=== PATIENT | female | born 1970 | race Caucasian/White ===

== ENCOUNTER 2020-08-02 01:12 | Inpatient (IN) | payer SELFPAY ==
[2020-08-02] VITALS (15 sets, daily range): BP systolic 111–181; BP diastolic 66–129; PULSE 78–103; RESP 17–18; TEMP 36.3–36.9; O2SAT 93–100; BMI 22.6
[2020-08-02 01:42] LABS: Basophils # 0.1 10^3/uL (0.0-0.1); Basophils % 1.1 %; Eosinophils # 0.2 10^3/uL (0.0-0.8); Eosinophils % 2.2 %; Hematocrit 44.6 % (37.0-47.0); Hemoglobin 14.8 g/dL (11.5-15.3); Lymphocytes # 4.2 10^3/uL (0.8-4.8); Lymphocytes % 47.1 %; Mean Corpuscular HGB Conc 33.2 g/dL (30.0-36.0); Mean Corpuscular Hemoglobin 34.7 pg (28.0-34.0); Mean Corpuscular Volume 104.4 fL (81-99); Mean Platelet Volume 9.7 fL (7.4-10.4); Monocytes % 10.7 %; Neutrophils # 3.42 10^3/uL (1.8-7.7); Neutrophils % 38.5 %; Nucleated Red Blood Cells % 0 %; Platelet Count 294 10^3/cmm (130-400); Red Blood Count 4.27 10^6/uL (4.1-5.3); White Blood Count 8.9 10^3/uL (4.0-10.0)
[2020-08-02] MEDS: sodium chloride 0.9% 1,000 ML 999 ML IV (01:47)
[2020-08-02] MEDS: haloperidol inj 5 mg/mL INJ 1 mL 2 MG IVP (01:49)
[2020-08-02 01:50] LABS: INR 0.94 (0.8-1.2)
[2020-08-02 02:09] LABS: Alanine Aminotransferase 68 U/L (0-33); Albumin Level 4.6 g/dL (3.5-5.2); Alkaline Phosphatase 133 IU/L (35-105); Aspartate Amino Transferase 121 U/L (0-32); Blood Urea Nitrogen 9 mg/dL (6-20); Carbon Dioxide 27 mmol/L (22-29); Chloride 108 mmol/L (98-107); Globulin 3.3 g/dL (1.3-4.6); Glomerular Filtration Rate 106.7 mL/min (90-130); Glucose 96 mg/dL (65-115); Osmolality Calculated 301 mOsm/kg (285-295); Sodium 146 mmol/L (136-145); Thyroid Stimulating Hormone 0.68 uIU/mL (0.27-4.20); Total Bilirubin 0.2 mg/dL (0.15-1.2); Total Protein 7.9 g/dL (6.6-8.7)
[2020-08-02 02:10] LABS: Acetaminophen < 5.0 ug/mL (10-30); Salicylate < 0.3 mg/dL (3-10)
[2020-08-02 02:12] LABS: Alcohol Level 410 mg/dL (0-10); Anion Gap 15.2 (5-19); Potassium 4.2 mmol/L (3.5-5.1)
--- NOTE | 2020-08-02 02:22 | W.ED.PSYCH ---
Documented by User: Harriett Caldwell MD 08/03/20 11:02 HPI - Psych General: Chief Complaint: Psychiatric Symptoms Stated Complaint: MHE Time Seen by Provider: 08/02/20 01:17 History of Present Illness: HPI Narrative: This patient is a 50-year-old female who comes in tonight very upset and crying. Family brought her to the ER and convinced her to stay and be seen. Apparently they are concerned about her alcohol use. The patient admits that she does drink a lot on a daily basis and has been doing so for many years. Today she is quite intoxicated. She said she is crying because she is sad. Apparently her children are in [facility] and she wants to go back and be with them. It is not clear why she cannot. She would not answer questions as to whether she is suicidal. She did tell the nurse that she is always suicidal but does not have a plan. Review of Systems General: Reports: 10 or more systems reviewed and unremarkable except in HPI and below Const: Denies: fever(s) Card: Denies: chest pain Resp: Denies: productive cough GI: Denies: vomiting Physical Exam Const: COMMON NORMALS: no acute distress and alert GENERAL APPEARANCE: cooperative HENMT: HEAD & SCALP: normal to inspection FACE & SINUS: normal facial exam Eye: GENERAL EYE: appearance normal, both eyes and all related structures Neck/C-Spine: COMMON NORMALS: supple, no meningeal signs and no JVD Chest: COMMONS NORMALS: normal inspection of the chest Resp: COMMON NORMALS: normal respiratory effort, No use of accessory muscles and clear to auscultation bilaterally AUSCULTATION: clear to auscultation bilaterally Cardio: COMMON NORMALS: no JVD, regular rate, regular rhythm and No murmurs present (Cardio) RATE: regular rate RHYTHM: regular rhythm GI: COMMON NORMALS: Normal to inspection, nondistended, normoactive bowel sounds present, Soft to palpation and non-tender INSPECTION: Yes normal to inspection AUSCULTATION: Yes normoactive bowel sounds PALPATION: Yes Soft to palpation Back/Pelvis: COMMON NORMALS: thoracic and lumbar spine normal to inspection Extremity: COMMON NORMALS: normal to inspection Neuro: COMMON NORMALS: moves all extremities, no focal motor deficits and no sensory deficits noted SENSORIUM/ORIENTATION: Yes alert MENINGEAL SIGNS: Yes no meningeal signs Psych: APPEARANCE: Yes disheveled ACTIVITY/MOTOR BEHAVIOR: Yes restless MOOD & AFFECT: Yes depressed mood, Yes anxious and Yes irritable THOUGHT CONTENT: Yes Suicidality present INSIGHT: Poor insight present (Psych) JUDGEMENT: Poor judgement present (Psych) Skin: COMMON NORMALS: no rashes or lesions noted and turgor normal GENERAL SKIN EXAM: no rashes or lesions noted and turgor normal MDM - Psych Lab Data: Labs: Lab Results 08/02/20 08/02/20 08/02/20 Range/Units 01:32 01:32 01:32 WBC 8.9 (4.0-10.0) 10^3/ uL RBC 4.27 (4.1-5.3) 10^6/u L Hgb 14.8 (11.5-15.3) g/dL Hct 44.6 (37.0-47.0) % MCV 104.4 H (81-99) fL MCH 34.7 H (28.0-34.0) pg MCHC 33.2 (30.0-36.0) g/dL RDW 12.0 L (12.1-15.1) % Plt Count 294 (130-400) 10^3/c mm MPV 9.7 (7.4-10.4) fL Neut % (Auto) 38.5 % Lymph % (Auto) 47.1 % [place] % (Auto) 10.7 % Eos % (Auto) 2.2 % Baso % (Auto) 1.1 % Neut # (Auto) 3.42 (1.8-7.7) 10^3/u L Lymph # (Auto) 4.2 (0.8-4.8) 10^3/u L [place] # (Auto) 1.0 H (0.2-0.9) 10^3/u L Eos # (Auto) 0.2 (0.0-0.8) 10^3/u L Baso # (Auto) 0.1 (0.0-0.1) 10^3/u L Nucleated RBC % (a uto) 0 % Nucleated RBCs # 0.0 /100WBC PT 12.80 (12.1-14.9) SECO NDS INR 0.94 (0.8-1.2) Sodium 146 H (136-145) mmol/L Potassium 4.2 (3.5-5.1) mmol/L Chloride 108 H (98-107) mmol/L Carbon Dioxide 27 (22-29) mmol/L Anion Gap 15.2 (5-19) BUN 9 (6-20) mg/dL Creatinine 0.6 (0.5-0.9) mg/dL GFR Calculation 106.7 (90-130) mL/min Glucose 96 (65-115) mg/dL Calculated Osmolal ity 301 H (285-295) mOsm/k g Calcium 9.0 (8.5-10.5) mg/dL Total Bilirubin 0.2 (0.15-1.2) mg/dL AST 121 H (0-32) U/L ALT 68 H (0-33) U/L Alkaline Phosphata se 133 H (35-105) IU/L Total Protein 7.9 (6.6-8.7) g/dL Albumin 4.6 (3.5-5.2) g/dL Globulin 3.3 (1.3-4.6) g/dL TSH 0.68 (0.27-4.20) uIU/ mL Salicylates < 0.3 L (3-10) mg/dL Acetaminophen < 5.0 L (10-30) ug/mL Ethyl Alcohol 410 H* (0-10) mg/dL Discharge Plan Discharge Patient Disposition: Admitted As Inpatient Admit Provider: Gal Rao Clinical Impression: Suicidal ideation, Alcohol intoxication, Chronic alcohol abuse Condition: Stable Sign Out Sign Out Data: Patient Sign Out occurred on 08/02/20 at 06:56. Patient's care was discussed, and care was transferred from to Anand Montilla DO. Coding Level of Care Code ED Paint Mixer Machine for Chg Fwd Exam Comprehensive Documented by User: Anand Montilla DO 08/02/20 07:10 HPI - Psych General: Chief Complaint: Psychiatric Symptoms Stated Complaint: MHE Time Seen by Provider: 08/02/20 01:17 MDM - Psych MDM Narrative: Medical decision making narrative: Patient still appears to be heavily intoxicated she will not discuss much with me at all. She does reiterate her suicidal thoughts but still does not express a plan similar to what she told Dr. Caldwell. I discussed with Dr. Rao organ to go ahead and admit her and he will see her on the floor. Lab Data: Labs: Lab Results 08/02/20 08/02/20 08/02/20 Range/Units 01:32 01:32 01:32 WBC 8.9 (4.0-10.0) 10^3/ uL RBC 4.27 (4.1-5.3) 10^6/u L Hgb 14.8 (11.5-15.3) g/dL Hct 44.6 (37.0-47.0) % MCV 104.4 H (81-99) fL MCH 34.7 H (28.0-34.0) pg MCHC 33.2 (30.0-36.0) g/dL RDW 12.0 L (12.1-15.1) % Plt Count 294 (130-400) 10^3/c mm MPV 9.7 (7.4-10.4) fL Neut % (Auto) 38.5 % Lymph % (Auto) 47.1 % [place] % (Auto) 10.7 % Eos % (Auto) 2.2 % Baso % (Auto) 1.1 % Neut # (Auto) 3.42 (1.8-7.7) 10^3/u L Lymph # (Auto) 4.2 (0.8-4.8) 10^3/u L [place] # (Auto) 1.0 H (0.2-0.9) 10^3/u L Eos # (Auto) 0.2 (0.0-0.8) 10^3/u L Baso # (Auto) 0.1 (0.0-0.1) 10^3/u L Nucleated RBC % (a uto) 0 % Nucleated RBCs # 0.0 /100WBC PT 12.80 (12.1-14.9) SECO NDS INR 0.94 (0.8-1.2) Sodium 146 H (136-145) mmol/L Potassium 4.2 (3.5-5.1) mmol/L Chloride 108 H (98-107) mmol/L Carbon Dioxide 27 (22-29) mmol/L Anion Gap 15.2 (5-19) BUN 9 (6-20) mg/dL Creatinine 0.6 (0.5-0.9) mg/dL GFR Calculation 106.7 (90-130) mL/min Glucose 96 (65-115) mg/dL Calculated Osmolal ity 301 H (285-295) mOsm/k g Calcium 9.0 (8.5-10.5) mg/dL Total Bilirubin 0.2 (0.15-1.2) mg/dL AST 121 H (0-32) U/L ALT 68 H (0-33) U/L Alkaline Phosphata se 133 H (35-105) IU/L Total Protein 7.9 (6.6-8.7) g/dL Albumin 4.6 (3.5-5.2) g/dL Globulin 3.3 (1.3-4.6) g/dL TSH 0.68 (0.27-4.20) uIU/ mL Salicylates < 0.3 L (3-10) mg/dL Acetaminophen < 5.0 L (10-30) ug/mL Ethyl Alcohol 410 H* (0-10) mg/dL Discharge Plan Discharge Patient Disposition: Admitted As Inpatient Admit Provider: Gal Rao Clinical Impression: Suicidal ideation, Alcohol intoxication, Chronic alcohol abuse Condition: Stable Sign Out Sign Out Data: Patient Sign Out occurred on 08/02/20 at 06:56. Patient's care was discussed, and care was transferred from to Anand Montilla DO. Coding Level of Care Code ED Paint Mixer Machine for g Fwd Exam Comprehensive
--- NOTE | 2020-08-02 04:01 | PC.SOCIAL ---
Attempted to see patient in the emergency department but due to her high BAL and been given Haldol she was unable to hold a conversation.
[2020-08-02 07:43] LABS: Add Urine Microscopic? NO
[2020-08-02 07:44] LABS: Bilirubin Urine Neg (Negative); Blood Urine Neg (Negative); Glucose Urine UA Norm (Normal); Ketones Urine Negative (Negative); Leukocyte Esterase Urine Negative (Negative); Nitrate Urine Negative (Negative); Protein Urine Neg (Negative); Urine Appearance Clear (CLEAR); Urine Color Yellow (Yellow); Urobilinogen Urine Norm (Negative)
[2020-08-02 07:46] LABS: HCG Qualitative Urine. Negative (Negative)
[2020-08-02 08:16] LABS: Alcohol Level 200 mg/dL (0-10)
[2020-08-02] MEDS: LORazepam 2 mg/mL INJ 1 mL IM (08:59)
--- NOTE | 2020-08-02 09:00 | PC.NURSE ---
Addendum entered by Catalina Galindo LPN 08/02/20 10:31: late entry for 0949 CIWA SCORE NOW AT A 0, PT ASLEEP IN BED IN ROOM, EYES CLOSED RESP EVEN ET UNLABORED Original Note: CIWA SCORE 14, ATIVAN 2 MG GIVEN IM PT NEW ADMIT TO NPU, VITAL SIGNS OBTAINED, ELEVATED BLOOD PRESSURE 179/129. PT TEARFUL, ANXIOUS, STATED SHE FELT LIKE SHE WAS GOING TO THROW UP. WILL CONT TO MONITOR
[2020-08-02 09:04] LABS: Amphetamines Screen Urine Positive (Negative); Barbiturates Screen Urine Negative (Negative); Benzodiazepines Screen Urine Negative (Negative); Cocaine Screen Urine Negative (Negative); Opiate Screen Urine Negative (Negative); PCP Screen Urine Negative (Negative); THC Screen Urine Negative (Negative)
--- NOTE | 2020-08-02 12:15 | PC.NURSE ---
contact audi WASSERMAN (SISTER) [phone]
--- NOTE | 2020-08-02 19:28 | NUR.SHIFT ---
PM assessment Limited assessment. Pt is mildly diaphoretic, reports nausea, stomach cramps, and is visible mild trembling with arms extended. V/S are BP 181/106, T 97.9, RR 17, IA 83, SPO2 on RA is 95. CIWA is 14 at this time. Med nurse notified of symptoms and score. Will continue to monitor.
[2020-08-02] MEDS: LORazepam 2 mg Tablet PO (19:44)
--- NOTE | 2020-08-02 20:15 | PC.NURSE ---
PRN MED PT GIVEN 2MG ATIVAN FOR ANXIETY, PER CIWA PROTOCOL, PT SCORED 14, WILL CONTINUE TO MONITOR.
--- NOTE | 2020-08-03 03:55 | PC.NURSE ---
Ciwa Pt scored 0 on ciwa for the second time since medication was given. She remains sleeping peacefully. Pt shows no signs or symptoms of withdrawl at this time.
[2020-08-03 06:00] VITALS: BP 171/117; PULSE 78; RESP 15; TEMP 36.4; O2SAT 97
[2020-08-03 07:25] LABS: Basophils # 0.1 10^3/uL (0.0-0.1); Basophils % 1.1 %; Eosinophils # 0.2 10^3/uL (0.0-0.8); Eosinophils % 3.2 %; Hematocrit 42.6 % (37.0-47.0); Hemoglobin 14.6 g/dL (11.5-15.3); Lymphocytes # 1.9 10^3/uL (0.8-4.8); Lymphocytes % 25.3 %; Mean Corpuscular HGB Conc 34.3 g/dL (30.0-36.0); Mean Corpuscular Hemoglobin 35.3 pg (28.0-34.0); Mean Corpuscular Volume 102.9 fL (81-99); Mean Platelet Volume 9.3 fL (7.4-10.4); Monocytes % 13.7 %; Neutrophils # 4.22 10^3/uL (1.8-7.7); Neutrophils % 56.4 %; Nucleated Red Blood Cells % 0 %; Platelet Count 262 10^3/cmm (130-400); Red Blood Count 4.14 10^6/uL (4.1-5.3); Red Cell Distribution Width 11.5 % (12.1-15.1); White Blood Count 7.5 10^3/uL (4.0-10.0)
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
[2020-08-03 07:49] LABS: Alanine Aminotransferase 48 U/L (0-33); Albumin Level 3.9 g/dL (3.5-5.2); Alkaline Phosphatase 122 IU/L (35-105); Anion Gap 14.8 (5-19); Aspartate Amino Transferase 57 U/L (0-32); Blood Urea Nitrogen 11 mg/dL (6-20); Calcium 9.4 mg/dL (8.5-10.5); Carbon Dioxide 27 mmol/L (22-29); Chloride 100 mmol/L (98-107); Glomerular Filtration Rate 106.7 mL/min (90-130); Glucose 105 mg/dL (65-115); Osmolality Calculated 286 mOsm/kg (285-295); Potassium 3.8 mmol/L (3.5-5.1); Sodium 138 mmol/L (136-145); Total Bilirubin 0.8 mg/dL (0.15-1.2); Total Protein 6.9 g/dL (6.6-8.7)
[2020-08-03] MEDS: thiamine 100 mg Tablet PO (08:14)
[2020-08-03] MEDS: multivitamin therapeutic Tablet 1 TAB PO (08:14)
[2020-08-03] MEDS: folic acid 1 mg Tablet PO (08:14)
[2020-08-03 14:00] VITALS: BP 164/112; PULSE 77; RESP 18; TEMP 37.4; O2SAT 95
[2020-08-03] MEDS: LORazepam 2 mg Tablet PO (15:08)
[2020-08-03 17:06] VITALS: BP 156/99
[2020-08-03 19:55] VITALS: BP 157/106; PULSE 87; RESP 18; TEMP 36.6; O2SAT 96
[2020-08-04 06:00] VITALS: BP 167/115; PULSE 77; RESP 16; TEMP 36.6; O2SAT 97
[2020-08-04] MEDS: folic acid 1 mg Tablet PO (08:01)
[2020-08-04] MEDS: multivitamin therapeutic Tablet 1 TAB PO (08:01)
[2020-08-04] MEDS: thiamine 100 mg Tablet PO (08:01)
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
[2020-08-04 11:56] VITALS: BP 167/115; PULSE 77; RESP 16; TEMP 36.6; O2SAT 97
[2020-08-04] MEDS: nicotine 2 mg Gum BUCCAL (13:49)
== END 2020-08-04 16:46 | disposition home or self-care (01) | DRG 882 ==
LOC: ER 07:10 → NP 07:48
PROVIDERS: Emergency Medicine; Admitting Provider Psychiatry & Neurology Psychiatry; Emergency Provider Family Medicine; Visit Provider Psychiatry & Neurology Psychiatry
DX: F43.25 Adjustment disorder with mixed disturbance of emotions and conduct (principal); R45.851 Suicidal ideations; F10.229 Alcohol dependence with intoxication, unspecified; F43.11 Post-traumatic stress disorder, acute; F17.210 Nicotine dependence, cigarettes, uncomplicated; Z62.810 Personal history of physical and sexual abuse in childhood; Y90.9 Presence of alcohol in blood, level not specified
CPT/HCPCS: 12345; 36415; 80053; 80306; 80307; 81003; 81025; 84443; 85025; 85610; 96372; 96375; 99284; J1630; J2060; J7030

== ENCOUNTER 2023-05-06 14:01 | Inpatient (IN) | payer SELFPAY ==
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
[2023-05-06 14:10] VITALS: BP 101/44; PULSE 99; RESP 18; TEMP 36.9; O2SAT 97; BMI 18.6
[2023-05-06] MEDS: LORazepam 2 mg/mL INJ 1 mL IM (14:32)
[2023-05-06 14:40] LABS: Basophils # 0.1 10^3/uL (0.0-0.1); Eosinophils # 0.6 10^3/uL (0.0-0.8); Eosinophils % 7.4 %; Hematocrit 43.1 % (36-47); Lymphocytes # 2.9 10^3/uL (0.8-4.8); Lymphocytes % 37.3 %; Mean Corpuscular HGB Conc 32.7 g/dL (30-55); Mean Corpuscular Hemoglobin 34.3 pg (27-33); Mean Corpuscular Volume 104.9 fl (85-98); Mean Platelet Volume 8.9 fL (7.4-10.4); Monocytes # 0.8 10^3/uL (0.2-0.9); Monocytes % 9.6 %; Neutrophils # 3.51 10^3/uL (1.8-7.7); Neutrophils % 44.6 %; Nucleated Red Blood Cells % 0 %; Platelet Count 332 10^3/cmm (157-399); Red Blood Count 4.11 10^6/uL (3.85-5.65); Red Cell Distribution Width 13.3 % (12.1-15.1); White Blood Count 7.88 10^3/uL (3.29-11.43)
[2023-05-06 14:56] LABS: Acetaminophen < 5.0 ug/mL (10-30); Alanine Aminotransferase 19 U/L (0-33); Albumin Level 4.2 g/dL (3.5-5.2); Alcohol Level 283 mg/dL (0-10); Alkaline Phosphatase 109 U/L (35-105); Blood Urea Nitrogen 10 mg/dL (6-20); Calcium 8.9 mg/dL (8.5-10.5); Carbon Dioxide 19 mmol/L (22-29); Chloride 109 mmol/L (98-107); Globulin 3.2 g/dL (1.3-4.6); Glomerular Filtration Rate 88.2 mL/min (90-130); Glucose 93 mg/dL (65-115); Osmolality Calculated 297 mOsm/kg (285-295); Salicylate < 0.3 mg/dL (3-10); Sodium 144 mmol/L (136-145); Total Bilirubin 0.3 mg/dL (0.15-1.2); Total Protein 7.4 g/dL (6.6-8.7)
[2023-05-06 14:57] LABS: Anion Gap 19.9 (5-19); Potassium 3.9 mmol/L (3.5-5.1)
[2023-05-06 14:58] LABS: Aspartate Amino Transferase 39 U/L (0-32)
--- NOTE | 2023-05-06 15:49 | PC.PHAR ---
PT UNABLE TO VERIFY ANY MEDICATIONS. CONFIRMED BEST MED LIST POSSIBLE WITH [facility]IES [facility] AND [email or web address]. 05/06/23
--- NOTE | 2023-05-06 16:15 | PC.NURSE ---
96 hr patient rights reviewed with patient and in presence of [facility] security guard Isaak @2013. Patient copy left at bedside.
[2023-05-06 17:30] VITALS: BP 157/111; PULSE 88; O2SAT 93
[2023-05-06 19:59] VITALS: BP 156/98; PULSE 101; RESP 18; TEMP 36.5; O2SAT 95
[2023-05-06] MEDS: LORazepam 2 mg Tablet PO (20:28)
[2023-05-06] MEDS: hyDROXYzine 25 mg Capsule 50 MG PO (20:29)
[2023-05-06 20:30] VITALS: BP 157/111; PULSE 88; RESP 18; TEMP 36.9; O2SAT 93
[2023-05-06 21:41] VITALS: BP 156/98; PULSE 101; RESP 18; TEMP 36.5; O2SAT 95
[2023-05-06] MEDS: ARIPiprazole 10 mg Tablet 5 MG PO (22:52)
[2023-05-07 06:00] VITALS: BP 168/118; PULSE 105; RESP 20; O2SAT 93
[2023-05-07] MEDS: LORazepam 2 mg Tablet PO (06:32)
[2023-05-07 08:25] VITALS: BP 168/118
[2023-05-07] MEDS: cloNIDine 0.1 mg Tablet PO ×2 (08:25→21:15)
[2023-05-07] MEDS: naltrexone hcl 50 mg Tablet PO (08:26)
[2023-05-07] MEDS: metoprolol tartrate 25 mg Tablet PO ×4 (08:26→21:15)
[2023-05-07] MEDS: lisinopril 20 mg Tablet PO (08:30)
[2023-05-07] MEDS: thiamine 100 mg Tablet PO (08:30)
[2023-05-07] MEDS: folic acid 1 mg Tablet PO (08:30)
[2023-05-07] MEDS: multivitamin therapeutic Tablet 1 TAB PO (08:34)
[2023-05-07 08:41] VITALS: BP 173/124
--- NOTE | 2023-05-07 13:08 | PC.NURSE ---
MED NOT GIVEN CLONIDINE NOT GIVEN DUE TO A BLOOD PRESSURE OF 112/77, WILL CONTINUE TO MONITOR.
[2023-05-07 14:00] VITALS: BP 120/77; PULSE 61; RESP 16; TEMP 36.7; O2SAT 96
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
[2023-05-07 20:44] VITALS: BP 145/91; PULSE 62; RESP 16; TEMP 36.6; O2SAT 97
[2023-05-07 21:15] VITALS: BP 145/91
[2023-05-07] MEDS: ARIPiprazole 10 mg Tablet 5 MG PO (21:15)
[2023-05-08 06:00] VITALS: BP 155/104; PULSE 66; RESP 14; TEMP 36.8; O2SAT 95
[2023-05-08 07:35] VITALS: BP 155/104
[2023-05-08] MEDS: cloNIDine 0.1 mg Tablet PO ×3 (07:35→20:19)
[2023-05-08] MEDS: naltrexone hcl 50 mg Tablet PO (07:36)
[2023-05-08] MEDS: thiamine 100 mg Tablet PO (07:36)
[2023-05-08] MEDS: folic acid 1 mg Tablet PO (07:36)
[2023-05-08] MEDS: metoprolol tartrate 25 mg Tablet PO ×3 (07:37→16:39)
[2023-05-08] MEDS: multivitamin therapeutic Tablet 1 TAB PO (07:37)
--- NOTE | 2023-05-08 07:40 | PC.NURSE ---
morning meds meds eleazar eary due to high b/p 155/104.
[2023-05-08] MEDS: lisinopril 20 mg Tablet PO (07:42)
[2023-05-08 12:34] VITALS: BP 147/91
[2023-05-08 14:00] VITALS: BP 99/66; PULSE 66; RESP 20; TEMP 528.3; TEMP 983; O2SAT 98
[2023-05-08 17:32] LABS: Amphetamines Screen Urine Negative (Negative); Barbiturates Screen Urine Negative (Negative); Benzodiazepines Screen Urine Positive (Negative); Cocaine Screen Urine Negative (Negative); Opiate Screen Urine Negative (Negative); PCP Screen Urine Negative (Negative); THC Screen Urine Positive (Negative)
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
[2023-05-08 20:12] VITALS: BP 122/79; PULSE 51; RESP 17; TEMP 36.6; O2SAT 99
[2023-05-08 20:19] VITALS: BP 122/79
[2023-05-08] MEDS: ARIPiprazole 10 mg Tablet 5 MG PO (20:19)
[2023-05-09] VITALS (7 sets, daily range): BP systolic 94–168; BP diastolic 65–119; PULSE 59–95; RESP 15–18; TEMP 36.6–36.9; O2SAT 95–98
[2023-05-09] MEDS: folic acid 1 mg Tablet PO (08:36)
[2023-05-09] MEDS: multivitamin therapeutic Tablet 1 TAB PO (08:36)
[2023-05-09] MEDS: cloNIDine 0.1 mg Tablet PO ×3 (08:37→20:56)
[2023-05-09] MEDS: naltrexone hcl 50 mg Tablet PO (08:37)
[2023-05-09] MEDS: lisinopril 20 mg Tablet PO (08:37)
[2023-05-09] MEDS: thiamine 100 mg Tablet PO (08:37)
[2023-05-09] MEDS: metoprolol tartrate 25 mg Tablet PO ×2 (08:37→12:35)
[2023-05-09] MEDS: nicotine 2 mg Gum BUCCAL ×2 (08:41→12:35)
[2023-05-09] MEDS: hyDROXYzine 25 mg Capsule 50 MG PO (08:41)
[2023-05-09 12:45] LABS: Add Urine Microscopic? NO; Charge for UA Resulting for Rev
[2023-05-09 12:57] LABS: Bilirubin Urine Neg (Negative); Blood Urine Neg (Negative); Glucose Urine UA Norm (Normal); Ketones Urine Negative (Negative); Leukocyte Esterase Urine Negative (Negative); Nitrate Urine Negative (Negative); Protein Urine Neg (Negative); Specific Gravity, Urine 1.015 (1.005-1.030); Urine Appearance Clear (CLEAR); Urine Color Yellow (Yellow); Urobilinogen Urine Norm (Negative); pH Urine 6.5 (5-7)
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
[2023-05-09] MEDS: ARIPiprazole 10 mg Tablet 5 MG PO (20:56)
[2023-05-10 06:00] VITALS: BP 146/92; PULSE 56; RESP 16; O2SAT 95
[2023-05-10 08:30] VITALS: BP 157/120
[2023-05-10] MEDS: nicotine 2 mg Gum BUCCAL ×3 (08:30→18:25)
[2023-05-10] MEDS: naltrexone hcl 50 mg Tablet PO (08:30)
[2023-05-10] MEDS: cloNIDine 0.1 mg Tablet PO ×3 (08:30→20:18)
[2023-05-10] MEDS: folic acid 1 mg Tablet PO (08:30)
[2023-05-10] MEDS: lisinopril 20 mg Tablet PO (08:30)
[2023-05-10] MEDS: thiamine 100 mg Tablet PO (08:30)
[2023-05-10] MEDS: metoprolol tartrate 25 mg Tablet PO ×4 (08:30→20:18)
[2023-05-10] MEDS: multivitamin therapeutic Tablet 1 TAB PO (08:30)
[2023-05-10] MEDS: hyDROXYzine 25 mg Capsule 50 MG PO (12:59)
[2023-05-10 13:48] VITALS: BP 102/64; PULSE 98; RESP 17; TEMP 36.6; O2SAT 98
[2023-05-10 18:04] VITALS: BP 144/93
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
[2023-05-10 20:18] VITALS: BP 144/93
[2023-05-10] MEDS: ARIPiprazole 10 mg Tablet 5 MG PO (20:19)
[2023-05-10] MEDS: trazodone 50 mg Tablet PO (20:21)
[2023-05-10 21:15] VITALS: BP 121/78; PULSE 60; RESP 16; TEMP 36.5; O2SAT 96
[2023-05-11] VITALS (7 sets, daily range): BP systolic 108–166; BP diastolic 72–113; PULSE 57–60; RESP 16; TEMP 36.9; O2SAT 99
[2023-05-11] MEDS: naltrexone hcl 50 mg Tablet PO (08:29)
[2023-05-11] MEDS: multivitamin therapeutic Tablet 1 TAB PO (08:29)
[2023-05-11] MEDS: thiamine 100 mg Tablet PO (08:29)
[2023-05-11] MEDS: nicotine 2 mg Gum BUCCAL ×2 (08:29→18:06)
[2023-05-11] MEDS: cloNIDine 0.1 mg Tablet PO ×3 (08:29→20:05)
[2023-05-11] MEDS: folic acid 1 mg Tablet PO (08:29)
[2023-05-11] MEDS: lisinopril 20 mg Tablet PO (08:29)
[2023-05-11] MEDS: metoprolol tartrate 25 mg Tablet PO ×4 (08:29→20:06)
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
[2023-05-11] MEDS: ARIPiprazole 10 mg Tablet 5 MG PO (20:05)
[2023-05-11] MEDS: trazodone 50 mg Tablet PO (20:05)
[2023-05-12 06:00] VITALS: BP 118/81; PULSE 55; RESP 16; O2SAT 97
[2023-05-12 09:27] VITALS: BP 146/95
[2023-05-12] MEDS: multivitamin therapeutic Tablet 1 TAB PO (09:27)
[2023-05-12] MEDS: folic acid 1 mg Tablet PO (09:27)
[2023-05-12] MEDS: cloNIDine 0.1 mg Tablet PO ×2 (09:27→12:45)
[2023-05-12] MEDS: naltrexone hcl 50 mg Tablet PO (09:27)
[2023-05-12] MEDS: lisinopril 20 mg Tablet PO (09:27)
[2023-05-12] MEDS: thiamine 100 mg Tablet PO (09:27)
[2023-05-12] MEDS: metoprolol tartrate 25 mg Tablet PO ×2 (09:27→12:46)
[2023-05-12] MEDS: nicotine 2 mg Gum BUCCAL ×2 (10:03→12:48)
[2023-05-12 12:45] VITALS: BP 120/80
[2023-05-12 14:00] VITALS: BP 139/89; PULSE 69; RESP 16; TEMP 36.6; O2SAT 95
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
[2023-05-12 16:29] VITALS: BP 139/89; PULSE 69; RESP 16; TEMP 36.6; O2SAT 95
== END 2023-05-12 16:43 | disposition home or self-care (01) | DRG 897 ==
LOC: ER 14:13 → NP 15:09
PROVIDERS: Admitting Provider Psychiatry & Neurology Psychiatry; Emergency Provider Family Medicine; Visit Provider Psychiatry & Neurology Psychiatry
DX: F10.129 Alcohol abuse with intoxication, unspecified (principal); R45.851 Suicidal ideations; Y90.8 Blood alcohol level of 240 mg/100 ml or more; Z62.810 Personal history of physical and sexual abuse in childhood
CPT/HCPCS: 36415; 80053; 80306; 80307; 81003; 85025; 96372; 97150; 97165; 99238; 99285; J2060